=== PATIENT | male | born 1960 | race Caucasian/White ===

== ENCOUNTER 2021-09-02 06:51 | Day surgery (SDC) | payer OTHER, SELFPAY ==
[2021-09-02] VITALS (21 sets, daily range): BP systolic 108–207; BP diastolic 63–124; PULSE 88–113; RESP 14–23; TEMP 36.6–36.9; O2SAT 90–98
--- NOTE | ~2021-09-02 | CT_ITS ---
EXAMINATION: CT abdomen pelvis w con DATE: 09/02/2021 07:48 INDICATION: Left lower quadrant pain. Hematuria. Elevated ketones. Nausea. TECHNIQUE: Computed tomography (CT) of the abdomen and pelvis was performed with 100 cc Omnipaque 350 intravenous contrast. The dose-length product was 1207.34 mGy-cm. Automated exposure control and ite rative reconstruction technique were employed. COMPARISON: None. FINDINGS: Lung bases are unremarkable. Heart size normal. No significant pleural or pericardial effus ion. No significant vascular abnormality. No lymphadenopathy. There is a 6 mm distal left ureteral stone near the UVJ with moderate left hydroureteronephrosis, per iureteral and perinephric edema as well as delayed enhancement of the left kidney, consistent with ob struction. There are nonobstructing right renal stones. There is an exophytic right renal cyst measur ing 6.5 cm. Fatty infiltration of the liver. Small subcentimeter hypodensities of the right hepatic lobe, most li aline benign. The spleen, pancreas, adrenal glands are unremarkable. Gallbladder is present. Nonobstru ctive bowel gas pattern. There is colonic diverticulosis without evidence for diverticulitis. No free air or free fluid. Small fat-containing umbilical hernia. Mild osteoarthritis of the hips. Small bon e island in the right ilium. IMPRESSION: 1. Distal left ureteral stone measuring 6 mm with moderate hydroureteronephrosis, periureteral/perine phric edema and delayed left nephrogram, consistent with obstruction. 2: Nonobstructing right nephrolithiasis. Reviewed, dictated and finalized at location A. IMPRESSION: 1. Distal left ureteral stone measuring 6 mm with moderate hydroureteronephrosi s, periureteral/perinephric edema and delayed left nephrogram, consistent with obstruction. 2: Nonobstructing right nephrolithiasis.
--- NOTE | ~2021-09-02 | XR_ITS ---
EXAMINATION: XR stent kub - surgery EXAM DATE: 09/02/2021 17:17 INDICATION: Left retrograde, stent placement. TECHNIQUE: Fluoroscopy used during XR stent kub - surgery performed by Dr. Ashwin Ram MD , urologist. The radiologist Frankie Akins M.D. dictating this report of the image(s) available was no t present for the procedure. Total fluoroscopic time of 14 seconds. The DAP for this procedure was 0.31 mGym2. A total of 7 images sent to PACS from the exam. There is no prior study for comparison. FINDINGS: Mild to moderate left hydroureteronephrosis, standing column of contrast on the shingle bolt cutter image . Left ureter was cannulated and A double-J ureteral stent was placed. Correlate with procedure note . IMPRESSION: Mild left hydronephrosis. Stent in position. Reviewed, dictated and finalized at location .
--- NOTE | ~2021-09-02 | XR_ITS ---
EXAMINATION: XR abdomen/kub 1V INDICATION: Left-sided flank pain TECHNIQUE: Supine views of the abdomen were obtained on 2 radiographs. COMPARISON: CT from today FINDINGS: There is an 8 mm stone projecting in the distal left ureter. There is a persistent left nep hrogram. There is partial opacification of the right ureter and the urinary bladder. The bowel gas pa ttern is normal. There is mild osteoarthritis of the hips. IMPRESSION: 1. 8 mm stone of the left distal ureter with persistent left nephrogram. Reviewed, dictated and finalized at location D.
--- NOTE | 2021-09-02 07:02 | ECG_ITS ---
Measurements Intervals [place] Rate: 106 P: 40 SD: 124 QRS: 49 QRSD: 90 T: 40 QT: 345 QTc: 459 Interpretive Statements SINUS TACHYCARDIA POSSIBLE RIGHT VENTRICULAR CONDUCTION DELAY [RSR (QR) IN V1/V2] BORDERLINE ECG NO PREVIOUS ECG AVAILABLE FOR COMPARISON Electronically Signed On 09-02-2021 11:19:14 CDT by Parveen Segura M.D.
--- NOTE | 2021-09-02 07:03 | ED.ABDPAIN ---
HPI - Abdominal Pain General Chief Complaint: Abdominal Pain Stated Complaint: trouble urinating, lower abd pain Time Seen by Provider: 09/02/21 06:58 Source: patient History of Present Illness HPI narrative: Patient presents with difficulty urinating. Reports has had intermittent symptoms over the past week. 2 days ago he Azo alleviate his symptoms when he stopped medication and his symptoms returned. Last night he was having a lot of throbbing in his lower abdomen giving him the urge to urinate he only urinated a small amount. He was urinating frequently throughout the night he was concerned so he came to the ER for evaluation. And one episode of emesis he denies any back pain or fever she denies any diarrhea. Related Data Home Medications Medication Instructions Recorded Confirmed amlodipine 10 mg PO DAILY 09/02/21 Allergies Allergy/AdvReac Type Severity Reaction Status Date / Time No Known Allergies Allergy Verified 09/02/21 07:12 Review of Systems Review of Systems: CONSTITUTIONAL: Reports subjective fevers and chills EYES: Denies visual changes, redness, or discharge. ENT: Denies rhinorrhea, congestion, sore throat, or otalgia. CARDIOVASCULAR: Denies chest pain, palpitations, or edema. RESPIRATORY: Denies cough or dyspnea. GASTROINTESTINAL: Denies abdominal pain, nausea, vomiting, or diarrhea. GENITOURINARY: Patient reports urinary urgency and frequency SKIN: Denies rash or itching. MUSCULOSKELETAL: Denies back pain, joint pain, or myalgia. NEUROLOGIC: Denies headache, numbness, dizziness, or weakness. PSYCHIATRIC: Denies anxiety or depression. All systems reviewed & are unremarkable except as noted in HPI and below PMFSH Past Medical History Medical History Essential (primary) hypertension Metabolic syndrome Mixed hyperlipidemia Family History Family History Grandparent Family history of coronary artery disease Social History Social History Smoking status: Never smoker Alcohol intake: current Exam Narrative: GENERAL: Well-appearing, well-nourished, and in no acute distress. HEAD: Normocephalic, atraumatic. EYES: PERRLA and EOMI. ENT: Nares clear, no rhinorrhea or epistaxis. Mucous membranes moist. NECK: Supple. No masses. No JVD CHEST: Clear to auscultation. No respiratory distress. No wheezes rales or rhonchi HEART: Regular rate and rhythm. No murmur heard. Normal peripheral pulses. ABDOMEN: Mild tenderness palpation suprapubic and left lower quadrant area soft, nondistended, normal active bowel sounds. EXTREMITIES: Normal range of motion. No edema. SKIN: Warm, dry, no rash. NEURO: No focal deficits. Alert and oriented x3. PSYCH: Normal mood and affect. Course Reevaluation(s) Reevaluation #1: Patient resting comfortably neurology will admit for further management. Patient is comfortable inpatient plan. Date: 09/02/21 Time: 10:16 Consultations Consultation #1: Pending urology recommendations Date: 09/02/21 Time: 10:12 Vital Signs Vital signs: Vital Signs Temperature 36.6 C 09/02/21 06:57 Pulse Rate 107 H 09/02/21 06:57 Respiratory Rate 18 09/02/21 06:57 Blood Pressure 166/115 H 09/02/21 06:57 Pulse Oximetry 93 09/02/21 06:57 Temperature 36.9 C 09/02/21 12:25 Pulse Rate 88 09/02/21 18:05 Respiratory Rate 14 09/02/21 18:05 Blood Pressure 126/80 09/02/21 18:05 Pulse Oximetry 98 09/02/21 17:48 MDM - Abdominal Pain MDM Narrative Medical decision making narrative: Patient presented with urinary symptoms and lower abdominal pain. Initial concern was for urinary tract infection however patient had increasing pain labs and imaging were ordered UA was concerning for infection imaging concerning for distal ureteral stone. Consult placed to urology who admit for further manage
[2021-09-02] MEDS: SODIUM CHLORIDE 0.9% IV 1,000 ML 999 ML IV CONT (07:11)
[2021-09-02 07:12] LABS: Basophils Percent Auto 0.2 % (0.2-1.2); Eosinophils Percent Auto 0.1 % (0-4.4); Hematocrit 43.9 % (42.0-52.0); Immature Granulocyte Absolute 0.07 K/mm3 (0.00-0.031); Immature Granulocyte Percent A 0.4 % (0-0.5); Lymphocytes Percent Auto 12.4 % (18.3-44.2); Mean Corpuscular HGB Conc 34.2 g/dl (32-36); Mean Corpuscular Hemoglobin 30.6 pg (26-34); Mean Corpuscular Volume 89.6 fl (80-100); Mean Platelet Volume 9.7 fl (7.4-10.4); Monocytes Absolute Auto 0.7 K/mm3 (0.1-0.6); Monocytes Percent Auto 4.5 % (2.6-8.5); Neutrophils Absolute Auto 13.2 K/mm3 (1.3-6.7); Neutrophils Percent Auto 82.4 % (45.5-73.1); Platelet Count Result 281 k/mm3 (150-375); Red Cell Distribution Width 12.6 % (11.5-14.5); White Blood Count 16.1 K/mm3 (4.5-10.0)
[2021-09-02 07:16] LABS: Add Urine Microscopic? YES; Appearance Urine Clear (Clear); Bilirubin Urine Negative (Negative); Blood Urine 2+ (Negative); Color Urine Amber (Yellow); Glucose Urine UA 1+ mg/dL (Negative); Ketones Urine 1+ mg/dL (Negative); Leukocyte Esterase Ur Negative LEU/UL (Negative); Mucus Urine Rare /lpf; Nitrate Urine Positive (Negative); Protein Urine 2+ mg/dL (Negative); RBC Urine 51-75 /hpf (0-2); Specific Grav Ur 1.017 (1.001-1.035); Squamous Epithelial Cell Urine Rare /hpf (Few); WBC Urine 0-3 /hpf
[2021-09-02 07:22] LABS: Alanine Aminotransferase 54 U/L (4-50); Alkaline Phosphatase 95 U/L (38-126); Anion Gap 11 mmol/L (8-16); Aspartate Amino Transferase 62 U/L (17-59); Bilirubin,Total 0.8 mg/dL (0.2-1.3); Blood Urea Nitrogen 17 mg/dL (9-20); Calcium 9.4 mg/dL (8.4-10.2); Carbon Dioxide 23 mmol/L (22-30); Chloride 104 mmol/L (98-107); Estimated CRCL calculation 89 ml/min; Estimated Glomerular Filt Rate > 60; Glucose 166 mg/dL (65-110); Lipase 169 U/L (23-300); Potassium 3.9 mmol/L (3.4-5.0); Sodium 138 mmol/L (137-145)
--- NOTE | 2021-09-02 07:25 | PC.NURSE ---
Patient repot received from CASANDRA Bernardo. All questions answered and care of patient assumed.
[2021-09-02] MEDS: CEPHALEXIN 500 MG CAPSULE PO (07:30)
[2021-09-02] MEDS: ONDANSETRON INJ 4 MG/2 ML VIAL IV PUSH ×3 (07:30→13:10)
[2021-09-02] MEDS: KETOROLAC 15 MG/ML VIAL (*BKC) IV PUSH (07:30)
--- NOTE | 2021-09-02 07:42 | PC.NURSE ---
Patient off unit to CT.
[2021-09-02] MEDS: MORPHINE SULFATE (*CRX) 4 MG/ML INJ IV PUSH ×2 (08:29→13:10)
--- NOTE | 2021-09-02 11:00 | PC.NURSE ---
Patient report given to CASANDRA Darby in the PACU. All questions answered. Patient to transport to OP room 17 at 1130.
--- NOTE | 2021-09-02 11:51 | SUR.PREOP ---
PT AND SPOUSE AWARE SURGERY IS NOT UNTIL 1630. PT PREFERS TO SIT IN RECLINER FOR NOW.
--- NOTE | 2021-09-02 12:21 | WPDURCON ---
Assessment and Plan Assessment and plan (1) UTI (urinary tract infection): Qualifiers: Hematuria presence: with hematuria Urinary tract infection type: site unspecified Qualified Code(s): N39.0 - Urinary tract infection, site not specified; R31.9 - Hematuria, unspecified Code(s): N39.0 - Urinary tract infection, site not specified Status: Acute Assessment and Plan: Continue Ceftriaxone, tailor antibiotics to culture results. Will admit to our service for pain control and management of UTI. (2) Calculus, ureteral: Code(s): N20.1 - Calculus of ureter Status: Acute Assessment and Plan: Obtain consent: Cystoscopy, left stent placement with left retrograde pyelgram. He will go to the OR this afternoon with Dr. Ram. Pending surgery we will evaluate to see if he will need to stay until his culture is resulted on IV antibiotics based on his overall post op status. Keep NPO. Will plan to do a ureteroscopy/stent exchange as an outpatient in a few weeks when UTI resolves, then remove his stent in office 1-2 weeks after that. (3) Right renal stone: Code(s): N20.0 - Calculus of kidney Status: Acute Assessment and Plan: No immediate plans to address at this time, it is small and not visible on KUB. Will monitor lobsterman. Urology Consult Note HPI Date Seen: 09/02/21 Requesting Physician: Ashwin Ram MD Primary Care Provider: Usha Wilcox DO Consult Narrative Narrative: Viktor Jorge is a 60 year old male who presented to the ER this morning with worsening left flank pain that started one week ago and was radiating to the LLQ. It started to worsen early this morning and was accompanied by nausea and vomiting. He denies dysuria, hematuria and difficulty urinating. He states he has a history of kidney stones and passed one spontaneously last year, but prior to this episode he has had no kidney stones. His WBC is 16.1, he is tachycardic, hypertensive, tachypneic but afebrile at this time. His creatinine is 1.00. CT scan shows a left distal ureteral stone measuring 6mm as well as right renal stones that are non obstructive. The KUB shows only the left distal stone present. Urine is positive for infection and he is currently being started on Ceftriaxone, urine culture is pending. The patient is otherwise healthy despite having hypertension and hyperlipidemia which are treated with prescriptions by his primary care doctor. Review of Systems Cardiovascular: Cardiovascular: Denies chest pain Respiratory: Respiratory: Reports no additional respiratory complaints Gastrointestinal: Gastrointestinal: Reports abdominal pain, Reports nausea and Reports vomiting Genitourinary: Genitourinary: Denies hematuria, Denies dysuria, Reports flank pain, Denies urinary frequency, Denies urinary hesitancy and Denies urinary urgency PMFSH Family History Family History Grandparent Family history of coronary artery disease Social History Social History Smoking status: Never smoker Alcohol intake: current Meds Home Medications and Allergies Home Medications Medication Instructions Recorded Confirmed Type losartan 50 mg tablet 50 mg PO DAILY #90 tablet 07/19/19 Rx atorvastatin 10 mg tablet 10 mg PO DAILY #90 tablet 08/15/19 Rx amlodipine 10 mg PO DAILY 09/02/21 History Allergies Allergy/AdvReac Type Severity Reaction Status Date / Time No Known Allergies Allergy Verified 09/02/21 07:12 Vital Signs Vital Signs - 24 hr 09/02/21 06:57 09/02/21 07:01 09/02/21 07:02 Temperature 97.8 F Pulse Rate 107 H 106 H 110 H Respiratory Rate 18 15 Blood Pressure 166/115 H Pulse Oximetry 93 09/02/21 07:22 09/02/21 08:12 09/02/21 08:15 Temperature Pulse Rate 108 H 111 H Respiratory Rate 22 H 22 H Blood Pressure Pulse Oximetry 9
[2021-09-02] MEDS: LACTATED RINGERS 1,000 ML 30 ML IV CONT (14:06)
--- NOTE | 2021-09-02 14:11 | SUR.PREOP ---
1310; PT C/O INCREASED PAIN AND NAUSEA. MEDS GIVEN 1410; PT AWAKE AND ALERT. STATES PAIN AND NAUSEA MUCH BETTER NOW AND TOLERABLE. RESTING IN RECLINER.
--- NOTE | 2021-09-02 15:35 | WPDANESEPPF ---
Anes - Initial Pre Proc Eval Procedure: Operation Date: 09/02/21 16:30 Proposed Procedures p Cystoscopy, Left Stent Placement, Left Retrograde Pyelogram - Ashwin Ram MD Date/Time: 09/02/21 15:35 Surgeon: Ashwin Ram MD Pre Op Diagnosis: trouble urinating, lower abd pain Patient Data Age: 60 Gender: M Height: 1.78 m Weight: 116.5 kg Last Vital Signs Temp 36.9 C 09/02/21 12:25 Pulse 105 H 09/02/21 12:25 Resp 18 09/02/21 12:25 BP 147/89 H 09/02/21 12:25 Pulse Ox 95 09/02/21 12:25 Allergies Allergy/AdvReac Type Severity Reaction Status Date / Time No Known Allergies Allergy Verified 09/02/21 07:12 Home Medications Medication Instructions Recorded Confirmed Type losartan 50 mg tablet 50 mg PO DAILY #90 tablet 07/19/19 Rx atorvastatin 10 mg tablet 10 mg PO DAILY #90 tablet 08/15/19 Rx amlodipine 10 mg PO DAILY 09/02/21 History Laboratory Tests 09/02/21 09/02/21 09/02/21 07:06 07:06 07:06 WBC 16.1 K/mm3 H K/mm3 (4.5-10.0) RBC 4.90 M/mm3 M/mm3 (4.6-6.20) Hgb 15.0 g/dL g/dL (14.0-18.0) Hct 43.9 % % (42.0-52.0) MCV 89.6 fl fl (80-100) MCH 30.6 pg pg (26-34) MCHC 34.2 g/dl g/dl (32-36) RDW 12.6 % % (11.5-14.5) Plt Count 281 k/mm3 k/mm3 (150-375) MPV 9.7 fl fl (7.4-10.4) Immature Gran % (Auto) 0.4 % % (0-0.5) Neut % (Auto) 82.4 % H % (45.5-73.1) Lymph % (Auto) 12.4 % L % (18.3-44.2) Ross % (Auto) 4.5 % % (2.6-8.5) Eos % (Auto) 0.1 % % (0-4.4) Baso % (Auto) 0.2 % % (0.2-1.2) Lymph # (Auto) 2.00 K/mm3 K/mm3 (0.9-3.2) Ross # (Auto) 0.7 K/mm3 H K/mm3 (0.1-0.6) Eos # (Auto) 0.0 K/mm3 K/mm3 (0-0.3) Baso # (Auto) 0.0 K/mm3 K/mm3 (0.0-0.1) Abs Immat Gran (auto) 0.07 K/mm3 H K/mm3 (0.00-0.031) Absolute Neuts (auto) 13.2 K/mm3 H K/mm3 (1.3-6.7) Absolute Nucleated RBC 0.0 K/mm3 K/mm3 (0.0-0.012) Nucleated RBC % 0.0 % % (0.0-0.2) Sodium 138 mmol/L mmol/L (137-145) Potassium 3.9 mmol/L mmol/L (3.4-5.0) Chloride 104 mmol/L mmol/L (98-107) Carbon Dioxide 23 mmol/L mmol/L (22-30) Anion Gap 11 mmol/L mmol/L (8-16) BUN 17 mg/dL mg/dL (9-20) Creatinine 1.00 mg/dL mg/dL (0.7-1.3) Estim Creat Clear Calc 89 ml/min ml/min Estimated GFR > 60 (59 - ) Glucose 166 mg/dL H mg/dL (65-110) Calcium 9.4 mg/dL mg/dL (8.4-10.2) Total Bilirubin 0.8 mg/dL mg/dL (0.2-1.3) AST 62 U/L H U/L (17-59) ALT 54 U/L H U/L (4-50) Alkaline Phosphatase 95 U/L U/L (38-126) Total Protein 9.0 g/dL H g/dL (6.3-8.2) Albumin 5.0 g/dL g/dL (3.5-5.1) Lipase 169 U/L U/L (23-300) Urine Color Tonja (Yellow) Urine Appearance Clear (Clear) Urine pH 6.0 (5.0-9.0) Ur Specific [place] 1.017 (1.001-1.035) Urine Protein 2+ mg/dL H mg/dL (Negative) Urine Glucose (UA) 1+ mg/dL H mg/dL (Negative) Urine Ketones 1+ mg/dL H mg/dL (Negative) Ur Blood (Man) 2+ H (Negative) Urine Nitrate Positive H (Negative) Urine Bilirubin Negative (Negative) Urine Urobilinogen 2.0 mg/dL H mg/dL (<2.0) Leukocyte Esterase Rfl Negative MOUSTAPHA/UL MOUSTAPHA/UL (Negative) Urine RBC 51-75 /hpf H /hpf (0-2) Urine WBC 0-3 /hpf /hpf Ur Squamous Epith Cells Rare /hpf /hpf (Few) Urine Mucus Rare /lpf /lpf Patient hx anesthesia problems: none Family hx anesthesia problems: none Results Review: All pre-operative results and documents have been reviewed as part of the pre-operative evalu
--- NOTE | 2021-09-02 15:53 | SUR.PREOP ---
Report given to Stephen Sanchez RN
--- NOTE | 2021-09-02 16:33 | WPDHPUPDATE1 ---
History and Physical Update Update Date/Time: 09/02/21 16:33 History and Physical has been reviewed, including an updated exam of the patient. There are NO changes in the patient's condition. Risks, benefits, and alternatives have been discussed and questions answered. Patient agrees to proceed with procedure. Proceed with cystoscopy, left retrograde pyelogram, left ureteral stent placement
[2021-09-02] MEDS: LIDOCAINE HCL 2% GEL UROJET 10 ML PKG MUCOUS MEM (17:10)
--- NOTE | 2021-09-02 17:13 | P.OP_ITS ---
Procedure Note - Detailed Date of Procedure 09/02/21 Pre-op Diagnosis Obstructing left distal ureteral calculus with UTI Post-op Diagnosis Same Procedure Performed Cystoscopy, left ureteral stent placement 4.8 [place] contour Surgeon Ashwin Ram MD Anesthesia MAC Description of Procedure Patient is taken the operative suite correctly identified. Once anesthesia was obtained was placed in dorsal lithotomy position and prepped and draped usual sterile fashion. Twenty-two [place] scope inserted in the bladder a does have a mild bulbar urethral narrowing. The bladder itself has no tumors. Given his UTI we have just decided to proceed with cystoscopy with left stent placement. A guidewire was able to be manipulated past the obstructing stone which appears to be in the distal intramural ureter. A 4.8 [place] contour stent was then placed with the proximal end coiled in the renal pelvis and the distal in the bladder. Bladder was drained. 2% viscous lidocaine was inserted urethra patient is taken recovery stable condition. He will be discharged with pain meds and antibiotics. Will plan on left ureteroscopy with stone extraction in 1-2 weeks time. Drains Yes Packing No Pathology None sent Complications No immediate complications Condition Stable Disposition PACU
--- NOTE | 2021-09-03 07:47 | WPDANESPN ---
Anes - Prog Note Post-Op Date/Time: 09/03/21 07:47 Cardiovascular status: normal Respiratory status: normal Airway patency: baseline Mental status: baseline Post-Op hydration status: normal Vital Signs: Last Vital Signs Temp 98.5 F 09/02/21 12:25 Pulse 88 09/02/21 18:05 Resp 14 09/02/21 18:05 BP 126/80 09/02/21 18:05 Pulse Ox 98 09/02/21 17:48 Pain Score (VAS): 06/23 I/O: Intake & Output 09/02/21 09/02/21 09/03/21 15:59 23:59 07:59 Intake Total 1050 150 Balance 1050 150 Laboratory Tests 09/02/21 07:06 09/02/21 07:06 Post-procedural complaints: none Patient Feedback: Patient satisfied with anesthetic care.
== END 2021-09-02 18:15 | disposition home or self-care (01) ==
LOC: ANHED 10:17 → ANHSURGERY 10:53
PROVIDERS: Emergency Provider Emergency Medicine; PCP Family Medicine; Visit Provider Urology
PROC: (CPT 52352; principal; 2021-09-02 16:30)
DX: N13.2 Hydronephrosis with renal and ureteral calculous obstruction (principal); N39.0 Urinary tract infection, site not specified; I10 Essential (primary) hypertension; E78.2 Mixed hyperlipidemia; E66.9 Obesity, unspecified; Z68.36 Body mass index [BMI] 36.0-36.9, adult
CPT/HCPCS: 52332; 36415; 74018; 74177; 80053; 81001; 83690; 85025; 87086; 93005; 96365; 96375; 96376; 99285; A9270; C1758; C1769; C2617; J0696; J1885; J2250; J2270; J2405; J2704; J3010; J7030; J7120; Q9967

== ENCOUNTER 2021-09-23 00:38 | Day surgery (SDC) | payer OTHER, SELFPAY ==
[2021-09-18 12:52] VITALS: BMI 33.7
--- NOTE | 2021-09-18 13:01 | PC.NURSE ---
Report to the Outpatient Waiting Room, entrance under the green pavilion located off [facility], at time 1145 on date 09/23/21. OR Time: 1345. - You and your visitor will be asked a series of questions to screen for COVID 19 for your protection. - A mask is required within the hospital. One visitor will be allowed to accompany the patient into the hospital. Patients visitor will be instructed to remain with patient at all times or leave the building. We will allow the visitor to come back to the postoperative area when patient is ready. Preoperative COVID Testing Requirements: No COVID Test needed if: (proof is required; if not received patient will have Rapid Test prior to entry) - Patient has received COVID Vaccine at least 14 days prior to procedure date or - Patient has positive COVID test result within last 90 days of surgery date. COVID Test needed if above criteria is not met Patients may have clear liquids (water, carbonated beverages, clear teas, apple juice) until 3 hours prior to surgery with a maximum of 20 ounces. - No food from midnight until time of surgery Take the following medications with a SIP of water the morning of surgery: MIRABEGRON Medications to discontinue per physician: N/A Date to take last dose: N/A Please no make-up, nail frisian, hairspray, perfume, deodorant, or body powder the day of surgery. No jewelry (including any body piercings) or valuables the day of surgery, leave them at home. Please take a shower or bath the night before, or the morning of, surgery with an antibacterial soap. Wear comfortable, loose fitting clothing. - Jewelry must be removed prior to entering the operating room. Rings and piercings that are not removed may be cut off. - The hospital will not accept responsibility for valuables. - Please leave all valuables, including medications, at home the day of surgery. If you are going home after surgery, a licensed local combination truck driver must drive you home. - NO public transportation without another adult. - We recommend that an adult stay with you for 24 hours following discharge. - We also recommend that you do not drive, make important decision, drink alcoholic beverages, or take any drugs that were not prescribed by your health care provider for at least 24 hours after your discharge time. Follow any additional instructions given to you from your surgeon. Telephone instructions given to DILLON ALLEN and asked if any additional questions and then verbalized understanding. Patient advised to call surgeon office or pre surgery nurse liaison [phone] if any additional questions.
--- NOTE | ~2021-09-23 | XR_ITS ---
EXAMINATION: XR retrograde pyelo w/stent LT EXAM DATE: 09/23/2021 13:12 INDICATION: Left-sided retrograde pyelogram, stent placement. TECHNIQUE: Fluoroscopy used during XR retrograde pyelo w/stent LT performed by Dr. Ashwin chan MD, urologist. The radiologist Frankie Akins M.D. dictating this report of the image(s) availabl e was not present for the procedure. Total fluoroscopic time of 13 seconds. The DAP for this proced ure was 2.3 [id number]. A total of 7 images sent to PACS from the exam. Comparison is made to prio r examination from 09/02/2021. 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 There is a left double-J ureteral stent in position. Contrast w as injected, unremarkable left ureter and opacified calyces. Possible stent exchange, correlate with procedure note. IMPRESSION: Fluoroscopy used during XR retrograde pyelo w/stent LT. Reviewed, dictated and finalized at location B.
--- NOTE | 2021-09-23 10:02 | WPDHPUPDATE1 ---
History and Physical Update Update Date/Time: 09/23/21 10:02 History and Physical has been reviewed, including an updated exam of the patient. There are NO changes in the patient's condition. Risks, benefits, and alternatives have been discussed and questions answered. Patient agrees to proceed with procedure.
[2021-09-23 11:57] VITALS: BP 155/80; PULSE 89; RESP 16; TEMP 36.5; O2SAT 100
[2021-09-23] MEDS: LACTATED RINGERS 1,000 ML 30 ML IV CONT (12:25)
--- NOTE | 2021-09-23 12:25 | WPDANESEPPF ---
Anes - Initial Pre Proc Eval Procedure: Operation Date: 09/23/21 13:45 Proposed Procedures p Cystoscopy, Left Ureteroscopy, Left Retrograde Pyelogram, Left Stone Extraction, Left Stent Exchange, - Ashwin Ram MD s Holmium Laser Procedure - Ashwin Ram MD Date/Time: 09/23/21 12:25 Surgeon: Ashwin Ram MD Pre Op Diagnosis: left ureteral stone Patient Data Age: 60 Gender: M Height: 1.78 m Weight: 105.8 kg Last Vital Signs Temp 36.5 C 09/23/21 11:57 Pulse 89 09/23/21 11:57 Resp 16 09/23/21 11:57 BP 155/80 H 09/23/21 11:57 Pulse Ox 100 09/23/21 11:57 Allergies Allergy/AdvReac Type Severity Reaction Status Date / Time No Known Allergies Allergy Verified 09/23/21 11:47 Home Medications Medication Instructions Recorded Confirmed Type losartan 50 mg tablet 50 mg PO DAILY #90 tablet 09/15/21 09/23/21 Rx mirabegron 25 mg PO DAILY 09/18/21 09/23/21 History pravastatin 10 mg tablet 10 mg PO QHS #90 tablet 09/23/21 09/23/21 Rx Patient hx anesthesia problems: none Family hx anesthesia problems: none Results Review: All pre-operative results and documents have been reviewed as part of the pre-operative evaluation. [facility] Past Medical History Medical History Essential (primary) hypertension Metabolic syndrome Mixed hyperlipidemia Family History Family History (Reviewed 09/15/21 @ 14:30 by Kelli Peter [facility]) Grandparent Family history of coronary artery disease Social History Social History Smoking status: Never smoker Alcohol intake: current Alcohol use details: 3-4/MONTH Substance use: current Substance use type: marijuana Living arrangements: with family Spiritual care concerns: No Anes - Eval Final PreProcedure Day of Procedure 09/23/21 12:25 Patient weight: obese Heart: regular rate and rhythm Lungs: clear to auscultation Airway: Mallampati scale class II Neurological: alert and oriented Last oral intake: >/= 8 hours ASA classification: II Emergent: no Anesthetic plan: proceed Anesthesia type and monitoring: general LMA and standard monitoring Results Review: All pre-operative results and documents have been reviewed as part of the pre-operative evaluation. Informed Consent: The patient's anesthetic plan and its attendant risks and benefits were discussed with the patient/family/POA. Questions were solicited and answers provided to the satisfaction of the patient/family/POA.
[2021-09-23] MEDS: ceFAZolin 2 GM/D5W 50 ML 2 GM/50 ML BAG IVPB (12:35)
[2021-09-23] MEDS: LIDOCAINE HCL 2% GEL UROJET 10 ML PKG MUCOUS MEM (12:49)
--- NOTE | 2021-09-23 13:10 | P.OP_ITS ---
Procedure Note - Detailed Date of Procedure 09/23/21 Pre-op Diagnosis left ureteral stone Post-op Diagnosis Same Procedure Performed Cystoscopy, left retrograde pyelogram, left ureteroscopy with holmium laser, stone extraction, left stent exchange 4.8 Belgian contour Surgeon Ashwin Ram MD Anesthesia General Description of Procedure Patient is taken to the operative suite and correctly identified. Once anesthesia was obtained he was placed in dorsal lithotomy position and prepped and draped usual sterile fashion. Twenty-two Belgian scope inserted the bladder. He does have some mild bulbar urethral narrowing. The bladder itself shows no tumors. The left ureteral stent was grasped brought out to the meatus. Then Glidewire was passed through this up to the renal pelvis. Rigid ureteral scope was then inserted into the orifice. The stone was visualized. It was too large to retrieve 1 piece. Using 273 micron fiber we fragmented the stone into multiple pieces using the holmium laser. We sent some of these for analysis. Reinspection revealed no residual stones. Pyelogram was then performed to confirm placement of the stent. 4.8 Belgian contour stent was then placed with the proximal end coiled in the renal pelvis and the distal end in the bladder. Bladder was drained. 2% viscous lidocaine was inserted urethra and patient is taken recovery stable condition. He will follow up in a week's time for stent removal. Call for that appointment Estimated Blood Loss 0 Drains Yes Packing No Pathology Yes Complications No immediate complications Condition Stable Disposition PACU
[2021-09-23 13:16] VITALS: BP 123/72; PULSE 77; RESP 14; TEMP 36.1; O2SAT 99
[2021-09-23 13:30] VITALS: BP 123/79; PULSE 73; RESP 12; O2SAT 100
[2021-09-23 13:45] VITALS: BP 145/86; PULSE 78; RESP 16; O2SAT 99
[2021-09-23 13:54] VITALS: BP 152/94; PULSE 72; RESP 16
[2021-09-23 14:20] VITALS: BP 152/93; PULSE 72; RESP 16
== END 2021-09-23 14:36 | disposition home or self-care (01) ==
PROVIDERS: PCP Family Medicine; Visit Provider Urology
PROC: (CPT 52352; principal; 2021-09-23 13:45)
PROC: (CPT 52356; 2021-09-23 13:45)
DX: N20.1 Calculus of ureter (principal); I10 Essential (primary) hypertension; E78.5 Hyperlipidemia, unspecified; E88.81 Metabolic syndrome and other insulin resistance; F12.90 Cannabis use, unspecified, uncomplicated; E66.9 Obesity, unspecified; Z68.33 Body mass index [BMI] 33.0-33.9, adult
CPT/HCPCS: 52356; 74420; 82365; 88300; A9270; C1769; C2617; J0690; J1100; J2405; J2704; J3010; J7120; Q9966

== ENCOUNTER → 2021-11-28 14:39 | Outpatient (CLI) | payer OTHER, SELFPAY ==
--- NOTE | ~2021-11-28 | XR_ITS ---
EXAM: XR shoulder RT min 2V DATE: 11/28/2021 15:05 HISTORY: M25.511 - Pain in right shoulder . COMPARISON: None available. FINDINGS: Subjectively decreased mineralization. [place] of the lung is clear. Large volume of amorphou s calcification in the superior cuff. Moderate AC joint hypertrophy. Mild pulmonary femoral narrowing and sclerosis. IMPRESSION: Severe calcific tendinitis of the right rotator cuff. Mild right glenohumeral osteoarthri tis. Reviewed, dictated and finalized at location K. IMPRESSION: Severe calcific tendinitis of the right rotator cuff. Mild right gl enohumeral osteoarthritis.
== END ==
PROVIDERS: PCP Family Medicine; Visit Provider Family Medicine
DX: M75.31 Calcific tendinitis of right shoulder (principal); M19.011 Primary osteoarthritis, right shoulder
CPT/HCPCS: 73030

== ENCOUNTER 2022-05-13 09:42 | Outpatient (CLI) | payer OTHER, SELFPAY ==
--- NOTE | ~2022-05-13 | XR_ITS ---
EXAM: XR abdomen/kub 1V DATE: 05/13/2022 10:01 HISTORY: CALCIUM KIDNEY STONE HX OF STONES IN AUGUST 2021 . COMPARISON: CT abdomen and pelvis 09/02/2021. FINDINGS: Clear lung bases. Normal bowel gas pattern. No organomegaly. Right inferior pole calculus, with multiple additional punctate right mid and lower pole calcifications. Vascular and prostate donell cifications. Renal calcifications in the mid and lower pole. Mild degenerative change in the lumbar s pine. Bilateral hip osteoarthritis. IMPRESSION: Right nephrolithiasis. Reviewed, dictated and finalized at location K. SBAR FRAME WIRER IMPRESSION: Right nephrolithiasis.
== END 2022-05-13 09:43 | disposition home or self-care (01) ==
PROVIDERS: PCP Family Medicine; Visit Provider Urology
DX: N20.0 Calculus of kidney (principal)
CPT/HCPCS: 74018

== ENCOUNTER → 2022-05-15 12:13 | Outpatient (CLI) | payer OTHER, SELFPAY ==
--- NOTE | ~2022-05-15 | XR_ITS ---
XR knee RT min 4V DATE: 05/15/2022 12:30 INDICATION: Right knee pain TECHNIQUE: 4 views COMPARISON: None FINDINGS: Small suprapatellar knee joint effusion is suggested. There is minimal periarticular spurri ng of the patella. There is superior pole patellar enthesopathy at the quadriceps tendon insertion. There is moderately prominent narrowing at the medial compartment joint space. No fracture, dislocation, periosteal reaction or bone destruction. No radiopaque intra-articular loos e body or chondrocalcinosis is detected. IMPRESSION: Moderate osteoarthritis involving primarily the patellofemoral and medial compartments Probable small suprapatellar knee joint effusion Reviewed, dictated and finalized at location B. S AND DISPLAYS SALESPERSON
== END ==
PROVIDERS: PCP Family Medicine; Visit Provider Family Medicine
DX: M17.11 Unilateral primary osteoarthritis, right knee (principal)
CPT/HCPCS: 73564

== ENCOUNTER 2022-06-16 09:54 | Outpatient (CLI) | payer OTHER, SELFPAY ==
--- NOTE | ~2022-06-16 | XR_ITS ---
Supine and upright views of the abdomen Clinical history: Kidney stone COMPARISON: 05/13/2022 Findings: Bowel gas pattern is nonspecific. No evidence for obstruction or free air. Suspected tiny s tone fragments noted in the right kidney. Osseous structures are intact. Impression: Suspected tiny residual stone fragments in the right kidney. Reviewed, dictated and finalized at location . AR CUTTER Impression: Suspected tiny residual stone fragments in the right kidney.
== END 2022-06-16 09:55 | disposition home or self-care (01) ==
PROVIDERS: PCP Family Medicine; Visit Provider Urology
DX: N20.0 Calculus of kidney (principal)
CPT/HCPCS: 74018